=== PATIENT | female | born 1980 | race Caucasian/White ===

== ENCOUNTER 2017-04-24 16:29 | Emergency (ER) | payer OTHER ==
[2017-04-24 16:37] VITALS: BP 117/81
[2017-04-24] MEDS ORDERED: CYCLOBENZAPRINE 10 MG TABLET PO STA (17:16)
[2017-04-24] MEDS ORDERED: KETOROLAC 60 MG/2 ML VIAL IM STA (17:16)
--- NOTE | 2017-04-24 17:20 | ED Physician Documentation ---
History of Present Illness - Stated complaint Stated Complaint: NECK PX - Chief complaint Chief Complaint: Back Pain - History obtained from History obtained from: Patient - History of Present Illness Timing: How many days ago (4) Pain level max: 6 Pain level now: 6 - Additonal information Additional information: Patient is a 37-year-old female who presents to the emergency department with 4 days of worsening neck pain since riding in go carts a approximately 4 days ago. She states that initially the pain started on the left and is now spread to the bilateral neck. Better with Tylenol, worse with movement. No fevers. No trauma. No headache. Review of Systems Constitutional: denies: Fever, Chills Eyes: denies: Photophobia Ears: denies: Ear pain Nose: denies: Rhinorrhea / runny nose, Congestion, Epistaxis, Sinus pressure / pain Cardiac: denies: Chest pain / pressure Respiratory: denies: Cough GI: denies: Abdominal Pain, Nausea, Vomiting, Diarrhea Skin: denies: Rash Musculoskeletal: denies: Back pain Neurologic: denies: Headache PD PAST MEDICAL HISTORY - Past Medical History Past Medical History: No - Past Surgical History Past Surgical History: No - Present Medications Home Medications: Ambulatory Orders Medication Instructions Recorded Confirmed Acetaminophen [Tylenol Extra 500 - 1,000 mg PO Q4HR PRN 04/24/17 04/24/17 Strength] Cyclobenzaprine [Flexeril] 10 mg PO TID PRN #20 tablet 04/24/17 Meloxicam [Mobic] 7.5 mg PO BID PRN #20 tablet 04/24/17 - Allergies Allergies/Adverse Reactions: Allergies Allergy/AdvReac Type Severity Reaction Status Date / Time No Known Drug Allergies Allergy Verified 07/30/13 19:22 - Social History Does the pt smoke?: Yes Smoking Status: Current every day smoker Does the pt drink ETOH?: No - Immunizations Immunizations are current?: Yes PD ED PE NORMAL - Vitals Vital signs reviewed: Yes - General General: Alert and oriented X 3, No acute distress, Well developed/nourished - HEENT HEENT: Atraumatic, PERRL, EOMI, Ears normal, Moist mucous membranes, Pharynx benign - Neck Neck: Supple, no meningeal sign, No adenopathy, No bruit, Other (Tender to palpation bilateral paracervical areas, muscle spasm present. Limited range of motion in all 4 directions secondary to pain.) - Cardiac Cardiac: RRR - Respiratory Respiratory: No respiratory distress, Clear bilaterally - Derm Derm: Warm and dry - Neuro Neuro: Alert and oriented X 3, plant associate 2-12 intact, No motor deficit, No sensory deficit, Normal speech - Psych Psych: Normal mood, Normal affect Results - Vitals Vitals: Vital Signs - 24 hr 04/24/17 16:35 Temperature 36.8 C Heart Rate 81 Respiratory 14 Rate Blood Pressure 117/81 H O2 Saturation 99 Oxygen O2 Source Room air PD MEDICAL DECISION MAKING - ED course Complexity details: considered differential, d/w patient ED course: Patient is a 37-year-old female who presents to the emergency department with what appears to be neck spasm. No evidence of meningitis, cervical spine fracture, other infectious etiology. No evidence of carotid dissections. GCS 15. Normal neurological exam. Feels better after Toradol and Flexeril. We will continue supportive care and follow-up with her doctor. Encouraged gentle range of motion. Patient counseled regarding signs and symptoms for which I believe and urgent re-evaluation would be necessary. Patient with good understanding of and agreement to plan and is comfortable going home at this time This document was made in part using voice recognition software. While efforts are made to proofread this document, sound alike and grammatical errors may occur. Departure - Departure Disposition: 01 Home, Self Care Clinical Impression: Neck muscle strain Qualifiers: Encounter type: initial encounter Qualified Code(s): S16.1XXA - Strain of muscle, fascia and tendon at neck level, initial encounter Condition: Good Instructions: ED Sprain Strain Neck Follow-Up: SUMAN WALLS DO [Primary Care Provider] - Within 1 week Prescriptions: Cyclobenzaprine [Flexeril] 10 mg PO TID PRN #20 tablet PRN Reason: Spasms Meloxicam [Mobic] 7.5 mg PO BID PRN #20 tablet PRN Reason: pain Comments: Return if you worsen. This should improve over the next 2-[address] operate heavy machinery while taking the flexeril. Discharge Date/Time: 04/24/17 18:10
[2017-04-24] MEDS ORDERED: CYCLOBENZAPRINE 10 MG TABLET PO ONE (17:25)
[2017-04-24] MEDS ORDERED: KETOROLAC 30 MG/ML VIAL ONE (17:26)
== END 2017-04-24 18:10 | disposition home or self-care (01) ==
LOC: ED 16:29
DX: S16.1XXA Strain of muscle, fascia and tendon at neck level, initial encounter (principal); X50.3XXA Overexertion from repetitive movements, initial encounter; Y93.I9 Activity, other involving external motion; Y92.89 Other specified places as the place of occurrence of the external cause; F17.200 Nicotine dependence, unspecified, uncomplicated
CPT/HCPCS: 96372; 99282; 99283; A9270

== ENCOUNTER 2021-11-20 07:25 | Outpatient (CLI) | payer OTHER | END 2021-11-20 07:26 | disposition home or self-care (01) | LOC: DI 07:25 | PROVIDERS: ATTEND Family Medicine | DX: R06.00 Dyspnea, unspecified (principal) | CPT/HCPCS: 93306 ==

== ENCOUNTER 2022-03-04 15:20 | Outpatient (CLI) | payer OTHER ==
--- NOTE | 2022-03-04 18:45 | MRI Report ---
PROCEDURE: MRI lumbar spine without contrast INDICATIONS: LOW BACK PAIN TECHNIQUE: Noncontrast sagittal T1 spin echo and T2 fast echo, sagittal STIR, axial T1 and T2 fast spin echo thr ough the lumbar spine. In cases with scoliosis, additional coronal T2 fast spin echo may be performe d. COMPARISON: None. FINDINGS: Image quality: Excellent. Alignment and Curvature: There is normal bony alignment. Bone Marrow: Marrow is of normal overall signal. No acute vertebral body compression fractures. Spinal Cord: Conus medullaris terminates at the L1 level. Visualized cord demonstrates normal signa l and size. Paraspinous Soft Tissues: No paravertebral masses. T12-L1: Normal in appearance. L1-L2: Normal in appearance. L2-L3: Normal in appearance. L3-L4: Normal in appearance. L4-L5: Normal in appearance. L5-S1: Normal in appearance. IMPRESSION: Normal MRI of the lumbar spine Reviewed by: Pio Ward MD on 03/04/2022 5:44 PM TEVIN Approved by: Pio Ward MD on 03/04/2022 5:44 PM TEVIN Station ID: [id number]
== END 2022-03-04 15:21 | disposition home or self-care (01) ==
LOC: DI 15:20
PROVIDERS: ATTEND Physician Assistant
DX: M54.50 Low back pain, unspecified (principal)

== ENCOUNTER 2022-05-23 20:47 | Outpatient (CLI) | payer OTHER | END 2022-05-23 20:48 | disposition home or self-care (01) | LOC: SC 20:47 | PROVIDERS: ATTEND Nurse Practitioner Family | DX: R06.83 Snoring (principal); G47.8 Other sleep disorders; R06.81 Apnea, not elsewhere classified; R51.9 Headache, unspecified; G47.10 Hypersomnia, unspecified; R53.83 Other fatigue | CPT/HCPCS: 95810 ==

== ENCOUNTER 2022-06-17 12:02 | Outpatient (CLI) | payer OTHER ==
--- NOTE | 2022-06-17 11:11 | SLEEP CARE CONSULTATION ---
Information from patient questionnaire entered by Nicci Rojas MA. I have reviewed and concur with the information entered by Nicci Rojas MA. This document represents the service I personally performed and the decisions made by Param carson Caren J, ARNP. History of Present Illness Service Date and Time: 06/17/2022 1100 Initial [place] Sleepiness Scale score: 23 (04/28/2022) Current [place] Sleepiness Scale score: 23 Additional HPI information: [place] returns via video telehealth visit for follow up and results of the recently performed polysomnography. The patient was informed of the following findings: No significant sleep disordered breathing with an average AHI of 4.0 and leyla oxygen saturation of 85%. Non-supine AHI elevated at 5.76. I explained the pathophysiology behind obstructive sleep apnea. Patient does not have sleep apnea and was advised how weight gain could increase the risk of developing sleep apnea in the future. I strongly encouraged the patient to lose weight. Patient does not have significant sleep disordered breathing but has elevated AHI in non-supine position so advised positional therapy to avoid non- supine sleep. Methods to achieve positional management therapy were discussed. Patient has moderate snoring. Snoring can be reduced by weight loss. Weight loss is best achieved with diet consult. Patient instructed to contact PCP for referral. Snoring can also be treated with an oral appliance from a dentist. Advised to check insurance coverage. In addition, an ENT evaluation can be do to see if other treatment is indicated. Patient does not drink alcohol. Patient was cautioned about risks of drowsy driving until sleepiness symptoms resolve. Sleep Study - Results Type of Sleep Study: Home sleep study Prior sleep studies: No Polysomnography/Home Sleep Study results: IMPRESSION: The quality of the study is good. The patient had normal sleep efficiency. The sleep architecture was relatively normal as well considering the first night effect. Respiratory monitoring showed no significant sleep disordered breathing (AHI = 4.0) or hypoxia (leyla oxygen saturation of 85% and only 1.4% of the total sleep time was spent with oxygen saturation below 90%). The few respiratory events occurred independently of sleep stage and body position (supine AHI = 3.3; non-supine = 5.76). Snore was moderate in intensity. There was no significant periodic leg movement of sleep. Cardiac rhythm was normal sinus rhythm without significant arrhythmia. No abnormal behavior (parasomnia) observed during the night Allergies and Home Medications Drug allergies reviewed: Yes (NKDA) Home medication list reviewed: Yes (no changes) Allergy and home medication list: Allergies No Known Drug Allergies Allergy (Verified 07/30/13 19:22) Review of Systems Review of systems same as previous: Yes (no changes) Physical Exam Vital signs obtained and entered by: VI MARR via telephone Height: 5 ft 4 in Weight: 197 lb (pt reported) Body Mass Index: 33.7 BMI Classification: Obese Impression and Plan Snoring but no significant sleep disordered breathing. However, patient did had slightly elevated nonsupine AHI. She was advised to avoid sleeping nonsupine to reduce apneas. Weight reduction is also advised to reduce apneas and improve her overall health. Patient advised that often weight loss will reduce snoring as well as apnea risk. An oral appliance can also be used for snoring. This would require a dental consultation. Patient cautioned not to use other online appliances as can cause bite issues. A list of accredited dentists in [facility] and one local dentist who makes oral appliances is available in office. Patient is advised to check if insurance will cover. An ENT consult can also be helpful to determine if any other treatment is an option. * Attempt to lose weight * Avoid alcohol consumption near bedtime * The patient is cautioned about driving until sleepiness is completely resolved. * Return in as needed for follow up. Counseling Topics: Weight loss health impact Visit Type: Telehealth Video Video Type: Doximity Patient Location: Home Location of Provider: Office Patient agrees and consents to this telehealth visit type: Yes Patient agrees to have their insurance billed: Yes Time Spent with Patient (minutes): 12 Provider Statement: I spent 100% of the Telehealth Video Call with the patient with greater than 50% spent counseling the patient and coordination of care.
== END 2022-06-17 12:03 | disposition home or self-care (01) ==
LOC: SC 12:02
PROVIDERS: ATTEND Nurse Practitioner Family
DX: R06.83 Snoring (principal); E66.9 Obesity, unspecified; Z68.33 Body mass index [BMI] 33.0-33.9, adult

== ENCOUNTER 2022-11-09 14:34 | Outpatient (CLI) | payer OTHER ==
--- NOTE | 2022-11-20 10:42 | Mammography Report ---
BILATERAL DIGITAL SCREENING MAMMOGRAM 3D/2D: 11/09/2022 CLINICAL: Family history of breast cancer. Routine screening. Comparison is made to exam dated: 06/24/2016 mammogram - [facility]. There are scattered areas of fibroglandular density in both breasts (category b / 25%-50% glandular t issue). There is a focal asymmetry in the right breast at 5 o'clock middle depth. No other significant masses, calcifications, or other findings are seen in either breast. IMPRESSION: INCOMPLETE: NEEDS ADDITIONAL IMAGING EVALUATION The focal asymmetry in the right breast likely represents a cyst and is indeterminate. Additional vi ews with possible ultrasound are recommended. Based on the Tyrer Cuzick model (a risk assessment model) the patients lifetime risk is 15.5% and he r 10 year risk is 2.0%. According to the ACR, ACS, and NCCN guidelines, an annual breast MRI exam geo ng with mammogram is recommended if the patients lifetime risk is 20% or greater. This exam was interpreted at Station ID: [id number]. NOTE: For mammograms, a report in lay terms will be sent to the patient. Approximately 15% of breast malignancies will not be visualized mammographically. In the management of a palpable breast mass, a negative mammogram must not discourage biopsy of a clinically suspicious lesion. Electronically Signed By: Lory Canas M.D. lk/:11/20/2022 09:46:10 ACR BI-RADS Category 0: Incomplete 3340F PARENCHYMAL PATTERN: (A) - The breast(s) demonstrate(s) scattered fibroglandular densities. BI-RADS CATEGORY: (0) - 0 Mammo and [place] [id number] Immediate follow-up LATERALITY: (B)
== END 2022-11-09 14:35 | disposition home or self-care (01) ==
LOC: DI.N 14:34
PROVIDERS: ATTEND Registered Nurse
DX: Z12.31 Encounter for screening mammogram for malignant neoplasm of breast (principal); Z80.3 Family history of malignant neoplasm of breast; R92.8 Other abnormal and inconclusive findings on diagnostic imaging of breast

== ENCOUNTER 2023-03-31 09:16 | Outpatient (CLI) | payer OTHER ==
--- NOTE | 2023-04-01 11:38 | Ultrasound Report ---
LIMITED ULTRASOUND OF RIGHT BREAST: 03/31/2023 CLINICAL: Patient returns today to evaluate a focal asymmetry in the right breast. Comparison is made to exams dated: 03/31/2023 mammogram, 11/09/2022 mammogram - [facility], and 06/24/2016 mammogram - [facility]. Color flow ultrasound of the right breast 3-4 o'clock region was performed. Nguyen scale images of the real-time examination were reviewed. There is a benign 1 cm x 0.7 cm x 0.5 cm oval simple cyst in the right breast at 4 o'clock anterior d epth 7 cm from the nipple. This correlates with mammography findings. IMPRESSION: BENIGN There is no sonographic evidence of malignancy. The 1 cm x 0.7 cm x 0.5 cm oval simple cyst in the right breast is benign. Return to annual mammogram screening schedule is recommended. This exam was interpreted at Station ID: [id number]. Electronically Signed By: Dudley Koehler M.D. lc/:03/31/2023 10:38:48 letter sent: No_Letter Ultrasound BI-RADS: 2 Benign BI-RADS CATEGORY: (2) - 2 Mammogram [id number] return to screening LATERALITY: (B)
--- NOTE | 2023-04-01 11:38 | Mammography Report ---
UNILATERAL RIGHT DIGITAL DIAGNOSTIC MAMMOGRAM 3D/2D WITH SPOT COMPRESSION: 03/31/2023 CLINICAL: Patient returns today to evaluate a focal asymmetry in the right breast. Comparison is made to exams dated: 11/09/2022 mammogram - [facility] and 06/24/2016 mammogram - [facility]. There are scattered areas of fibroglandular density in the right breast (category b / 25%-50% glandul ar tissue). There is a 1 cm oval mass with a circumscribed margin in the right breast at 5 o'clock middle depth. No other significant masses or calcifications are seen in the breast. IMPRESSION: INCOMPLETE: NEEDS ADDITIONAL IMAGING EVALUATION The 1 cm oval mass in the right breast is indeterminate. An ultrasound is recommended. Based on the Tyrer Cuzick model (a risk assessment model) the patients lifetime risk is 16.3% and he r 10 year risk is 2.4%. According to the ACR, ACS, and NCCN guidelines, an annual breast MRI exam geo ng with mammogram is recommended if the patients lifetime risk is 20% or greater. This exam was interpreted at Station ID: [id number]. NOTE: For mammograms, a report in lay terms will be sent to the patient. Approximately 15% of breast malignancies will not be visualized mammographically. In the management of a palpable breast mass, a negative mammogram must not discourage biopsy of a clinically suspicious lesion. Electronically Signed By: Dudley Koehler M.D. lc/:03/31/2023 10:36:23 ACR BI-RADS Category 0: Incomplete 3340F PARENCHYMAL PATTERN: (A) - The breast(s) demonstrate(s) scattered fibroglandular densities. BI-RADS CATEGORY: (0) - 0 Ultrasound [id number] Immediate follow-up LATERALITY: (B)
== END 2023-03-31 09:17 | disposition home or self-care (01) ==
LOC: DI 09:16
PROVIDERS: ATTEND Registered Nurse
DX: N60.01 Solitary cyst of right breast (principal)

== ENCOUNTER 2024-02-12 19:33 | Emergency (ER) | payer OTHER ==
[2024-02-12 19:54] VITALS: BP 128/75; O2SAT 95
--- NOTE | 2024-02-12 21:17 | XRAY Report ---
PROCEDURE: Knee 4+V LT INDICATIONS: knee pain TECHNIQUE: 6 views of the knee(s) were acquired. COMPARISON: None. FINDINGS: Bones: No fractures or dislocations. No suspicious bony lesions. Soft tissues: Small knee joint effusion. No suspicious soft tissue calcifications or masses. IMPRESSION: No acute bony abnormality. Small knee joint effusion. If pain persists with conservative management, consider further evaluation with cross-sectional imagi ng such as CT or MRI. Reviewed by: Hien Mosquera MD, PhD on 02/12/2024 9:16 PM PDT Approved by: Hien Mosquera MD, PhD on 02/12/2024 9:16 PM PDT Station ID: [id number]
--- NOTE | 2024-02-12 21:19 | ED Physician Documentation ---
PD HPI LOWER EXT INJURY - Stated complaint Stated Complaint: L KNEE INJ - Chief complaint Chief Complaint: Trauma Ext - History obtained from History obtained from: Patient - Additional information Additional information: Patient is a 44-year-old female presenting for evaluation of left knee pain. Patient states that she has had pain over the course of the last year after knee injury last year. Has been getting better but it started to flareup again a week ago. This evening she was out taking prom pictures and felt a pop in the knee. She reports pain with ambulation and difficulty in bearing weight. She has [facility]. Denies injuries elsewhere. Does not take a blood thinner. Review of Systems Musculoskeletal: reports: Extremity pain PD PAST MEDICAL HISTORY - Past Surgical History Past Surgical History: No - Present Medications Home Medications: Ambulatory Orders Medication Instructions Recorded Confirmed Acetaminophen [Tylenol Extra 500 - 1,000 mg PO Q4HR PRN 04/24/17 02/12/24 Strength] Cyclobenzaprine [Flexeril] 10 mg PO TID PRN #20 tablet 04/24/17 02/12/24 Meloxicam [Mobic] 7.5 mg PO BID PRN #20 tablet 04/24/17 02/12/24 - Allergies Allergies/Adverse Reactions: Allergies Allergy/AdvReac Type Severity Reaction Status Date / Time No Known Drug Allergies Allergy Verified 02/12/24 21:09 - Social History Does the pt smoke?: Yes Smoking Status: Current every day smoker Does the pt drink ETOH?: No Does the pt have substance abuse?: No - Immunizations Immunizations are current?: Yes - POLST Patient has POLST: No PD ED PE NORMAL - General General: Alert and oriented X 3, No acute distress, Well developed/nourished - HEENT HEENT: Atraumatic - Cardiac Cardiac: Strong equal pulses - Respiratory Respiratory: No respiratory distress - Derm Derm: Warm and dry - Extremities Extremities: No deformity, Other (No bony tenderness to the left knee, no laxity With varus or valgus stress, no laxity with anterior posterior stress, patient reports pain with range of motion, particularly with flexion, no tenderness distally in the lower extremity, normal range of motion at the left hip) Results - Vitals Vitals: Vital Signs - 24 hr 02/12/24 19:49 Temperature 36.5 C Heart Rate 96 Respiratory 18 Rate Blood Pressure 128/75 O2 Saturation 95 Oxygen O2 Source Room air PD Medical Decision Making - ED course Complexity details: reviewed results, d/w patient ED course: Patient with pain to the left knee after feeling a pop earlier today. No significant swelling. Neurovascularly intact. No visible deformity. History does not suggest knee dislocation. Patient does have pain on range of motion. X-ray was obtained which I reviewed I see no fracture or dislocation. Patient was placed into a knee immobilizer and given crutches. She is already awaiting an [facility] for prior issues with this knee. Patient counseled on continued supportive care as well as concerning symptoms to return for. Departure - Departure Disposition: Home, Self Care Clinical Impression: Left knee injury Condition: Stable Instructions: ED Knee Pain UKO Comments: Your Xray Does not show a broken bone or a dislocation. However some injuries may not show up on an x-ray. I would recommend using the knee immobilizer and crutches to stay off the leg and using anti-inflammatory such as ibuprofen or acetaminophen along with ice, elevation and rest. If your pain is not improving over the course of the next week then I would recommend close follow-up with your primary care provider. IMPRESSION: No acute bony abnormality. Small knee joint effusion. If pain persists with conservative management, consider further evaluation with cross-sectional imaging such as CT or MRI. Forms: PCP List Discharge Date/Time: 02/12/24 21:25
== END 2024-02-12 21:25 | disposition home or self-care (01) ==
LOC: ED 19:33
DX: S89.92XA Unspecified injury of left lower leg, initial encounter (principal); X58.XXXA Exposure to other specified factors, initial encounter; Y93.89 Activity, other specified; F17.200 Nicotine dependence, unspecified, uncomplicated
CPT/HCPCS: 99283

== ENCOUNTER 2024-05-17 13:45 | Outpatient (CLI) | payer OTHER ==
--- NOTE | 2024-05-18 14:33 | Mammography Report ---
BILATERAL DIGITAL SCREENING MAMMOGRAM 3D/2D: 05/17/2024 CLINICAL: Routine screening. Family history of breast cancer. Comparison is made to exams dated: 03/31/2023 ultrasound, 03/31/2023 mammogram, 11/09/2022 mammogram - [facility], 06/24/2016 mammogram, and 06/10/2016 ultrasound - [facility]. There are scattered areas of fibroglandular density (category b / 25%-50% glandular tissue). No significant masses, calcifications, or other findings are seen in either breast. There has been no significant interval change. IMPRESSION: NEGATIVE There is no mammographic evidence of malignancy. A 1 year screening mammogram is recommended. Based on the Tyrer Cuzick model (a risk assessment model) the patient's lifetime risk is 16.3% and he r 10 year risk is 2.6%. According to the ACR, ACS, and NCCN guidelines, an annual breast MRI exam geo ng with mammogram is recommended if the patient's lifetime risk is 20% or greater. This exam was interpreted at Station ID: [id number]. NOTE: For mammograms, a report in lay terms will be sent to the patient. Approximately 15% of breast malignancies will not be visualized mammographically. In the management of a palpable breast mass, a negative mammogram must not discourage biopsy of a clinically suspicious lesion. Electronically Signed By: Hien Mosquera M.D., Ph.D. eb/penrad:05/17/2024 14:24:39 ACR BI-RADS Category 1: Negative 3341F PARENCHYMAL PATTERN: (A) - The breast(s) demonstrate(s) scattered fibroglandular densities. BI-RADS CATEGORY: (1) - 1 RECOMMENDATION: (ANNUAL) - Recommend routine annual screening mammography. [id number] 1 year screening LATERALITY: (B)
== END 2024-05-17 13:46 | disposition home or self-care (01) ==
LOC: DI.N 13:45
PROVIDERS: ATTEND Registered Nurse
DX: Z12.31 Encounter for screening mammogram for malignant neoplasm of breast (principal); Z80.3 Family history of malignant neoplasm of breast